=== PATIENT | male | born 1990 | race Caucasian/White ===

== ENCOUNTER 2020-07-11 05:49 | Emergency (ER) | payer SELFPAY ==
[2020-07-11] MEDS ORDERED: Lidocaine 1% 20 ML MDV INFILT ONE (05:50)
--- NOTE | 2020-07-11 06:21 | EDM.PDOC ---
ED HPI GENERAL MEDICAL PROBLEM - General Chief Complaint: Laceration Stated Complaint: CUT Time Seen by Provider: 07/11/20 06:12 Source of Information: Reports: Patient History Limitations: Reports: No Limitations - History of Present Illness INITIAL COMMENTS - FREE TEXT/NARRATIVE: 29-year-old male who reports was washing dishes this morning at about 5:30 AM and he put his hand into a glass to wash the glass out and the glass broke causing a laceration to the right ulnar hand. There was bleeding that was controlled with direct pressure. He irrigated the wound copiously with water at home and then was brought here by his girlfriend. He reports no pain in the area now but when pressing on the area it is a 2-3/10 and stinging. He has full function in the right hand. He has normal sensation to his right fifth finger. There was no other injury. There are no other associated signs or symptoms. There are no other modifying factors. 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 (see below) (Nothing.) Right Hand Pain Score (Numeric/FACES): 6 - Related Data Allergies Allergy/AdvReac Type Severity Reaction Status Date / Time No Known Allergies Allergy Verified 07/11/20 06:04 Past Medical History Musculoskeletal History: Reports: Neck Pain, Chronic Other Musculoskeletal History: bulging disk in neck - Past Surgical History HEENT Surgical History: Reports: Oral Surgery Social & Family History - Tobacco Use Tobacco Use Status *Q: Current Every Day Tobacco User Years of Tobacco use: 20 Packs/Tins Daily: 1 - Caffeine Use Caffeine Use: Reports: Coffee, Soda - Alcohol Use Alcohol Use History: Yes Date of Last Drink: 07/11/20 Alcohol Use Frequency: Weekly - Recreational Drug Use Recreational Drug Use: No - Living Situation & Occupation Living situation: Reports: with Significant Other Occupation: Employed (Works at the [employer] ED ROS GENERAL - Review of Systems Review Of Systems: See Below Constitutional: Reports: No Symptoms HEENT: Reports: Other (Posterior neck pain) Respiratory: Reports: No Symptoms Cardiovascular: Reports: No Symptoms Endocrine: Reports: No Symptoms GI/Abdominal: Reports: No Symptoms : Reports: No Symptoms Musculoskeletal: Reports: Neck Pain (Posterior neck pain) Skin: Reports: Wound (Laceration to right hand) Neurological: Reports: No Symptoms Hematologic/Lymphatic: Reports: No Symptoms Immunologic: Reports: Other (Last tetanus immunization was greater than 5 years ago, so he is not up-to-date.) ED EXAM, SKIN/RASH Exam: See Below Exam Limited By: No Limitations General Appearance: Alert, WD/WN, No Apparent Distress Eye Exam: Bilateral Eye: EOMI, Normal Inspection Ears: Normal External Exam, Hearing Grossly Normal Nose: Normal Inspection, Normal Mucosa, No Blood Throat/Mouth: Normal Inspection, Normal Lips, Normal Oropharynx, Normal Voice, No Airway Compromise Head: Atraumatic, Normocephalic Neck: Limited Range of Motion (Secondary to pain which is chronic.), Tender Lateral Respiratory/Chest: No Respiratory Distress, Lungs Clear, Normal Breath Sounds, No Accessory Muscle Use, Chest Non-Tender Cardiovascular: Normal Peripheral Pulses, Regular Rate, Rhythm, No Edema, No Murmur Peripheral Pulses: 2+: Radial (L), Radial (R) GI/Abdominal: Normal Bowel Sounds, Soft, Non-Tender Back Exam: Normal Inspection Extremities: Normal Range of Motion, No Pedal Edema, Normal Capillary Refill Neurological: Alert, Oriented, CN II-XII Intact, Normal Cognition, No Motor/Sensory Deficits Skin: Warm, Dry, Normal Color, No Rash, Wound/Incision (As below) Location, Skin: Upper Extremity, Right (Right hand) Characteristics: Linear, Other (The wound is 7.5 cm in length.) ED SKIN PROCEDURES - Laceration/Wound Repair Right Hand Appearance: Subcutaneous (C shaped flap) Distal NVT: Neuro & Vascular Intact Anesthetic Type: Local Local Anesthesia - Lidocaine (Xylocaine): 1% Plain Local Anesthetic Volume: Other (9 ml. Good anesthesia, no complications.) Skin Prep: Saline Saline Irrigation (cc's): 600 Exploration/Debridement/Repair: Wound Explored, In a Bloodless Field Closed with: Sutures Lac/Wound length In cm: 7.5 Suture Size: 4-0 # of Sutures: 12 Suture Type: Prolene, Running (Running simple sutures 11), Simple, Mattress (Interrupted vertical mattress suture 1) Drain Placement: No Sterile Dressing Applied: Nurse Tetanus Status Addressed: Yes (Patient was given Tdap immunization.) Complications: No Course - Vital Signs Last Recorded V/S: Last Vital Signs Temp 36.6 C 07/11/20 06:04 Pulse 98 07/11/20 06:04 Resp 16 07/11/20 06:04 BP 124/84 07/11/20 06:04 Pulse Ox 100 07/11/20 06:04 - Orders/Labs/Meds Orders: Active Orders 24 hr Category Date Time Status Vaccines to be Administered [RC] PER UNIT ROUTINE Care 07/11/20 06:20 Active Meds: Medications Discontinued Medications Generic Name Dose Route Start Last Admin Trade Name Freq PRN Reason Stop Dose Admin Diphtheria/Tetanus/Acell Pertussis 0.5 ml 07/11/20 06:20 Boostrix IM 07/11/20 06:21 .ONCE ONE - Re-Assessments/Exams Free Text/Narrative Re-Assessment/Exam: 07/11/20 07:00: Wound was irrigated and closed and the patient tolerated this well. There were no apparent palpitations. An appropriate supportive dressing was applied by the nursing staff. Wound care instructions were given to the patient. Suture removal in 10 days. Departure - Departure Time of Disposition: 07:07 Disposition: Home, Self-Care 01 Condition: Good (Improved) Clinical Impression: Laceration of right hand Qualifiers: Encounter type: initial encounter Foreign body presence: without foreign body Qualified Code(s): S61.411A - Laceration without foreign body of right hand, initial encounter - Discharge Information Instructions: Laceration Care, Adult, [id number], Sutures, Yamilet, or Adhesive Wound Closure, [id number] Forms: ED Department Discharge Additional Instructions: Do not get the wound wet for 3 days. After 3 days, you may get the wound wet but do not immerse the wound in water until the sutures are out. Suture removal in 10 days. Avoid strenuous use with the right hand for the next 2 weeks. Back to an emergency department for redness, increased swelling, marked increase in pain or any other concerning sign or symptom. Sepsis Event Note (ED) - Evaluation Sepsis Screening Result: No Definite Risk - Focused Exam Vital Signs: Vital Signs Temp Pulse Resp BP Pulse Ox 07/11/20 06:04 36.6 C 98 16 124/84 100 - My Orders Last 24 Hours: My Active Orders 07/11/20 06:20 Vaccines to be Administered [RC] PER UNIT ROUTINE - Assessment/Plan Last 24 Hours: My Active Orders 07/11/20 06:20 Vaccines to be Administered [RC] PER UNIT ROUTINE
[2020-07-11] MEDS: Diphtheria,Pertussis(Acell),Tetanus Vaccine 0.5 ML Syringe IM ONE (07:11)
== END 2020-07-11 07:33 | disposition home or self-care (01) ==
LOC: FB.ED 05:49
DX: S61.411A Laceration without foreign body of right hand, initial encounter (principal); F17.210 Nicotine dependence, cigarettes, uncomplicated; Z23 Encounter for immunization; W25.XXXA Contact with sharp glass, initial encounter
CPT/HCPCS: 12002; 90471; 90715; 99282; J2001